=== PATIENT | male | born 1960 | race Caucasian/White ===

== ENCOUNTER → 2019-05-02 | Outpatient (CLI) | payer BC ==
--- NOTE | 2019-05-02 21:51 | CT ---
EXAMINATION TYPE: CT sinus wo con DATE OF EXAM: 05/02/2019 COMPARISON: Facial bone CT April 15, 2011. HISTORY: chronic sinusitis per order. Facial pain for [address] DLP: 468 mGycm. Automated Exposure Control for Dose Reduction was Utilized. TECHNIQUE: CT scan of the sinuses is performed without contrast, axial images are obtained, coronal r eformatted images are also reviewed. FINDINGS: Mild to moderate mucosal thickening involving the bilateral maxillary sinuses remains prese nt more prominent superior aspect near the antrum where there is suspected small mucous retention cys ts or polyps particularly on the left side. There is complete opacification of the ethmoid sinuses b ilaterally. There is near complete opacification of the left frontal sinus. The right frontal sinus s hows mild to moderate inferior mucosal thickening. Mild mucosal thickening bilateral sphenoid sinuses with patchy opacity anteriorly in the right sphenoid sinus is noted. The ostiomeatal complex is bloc ked bilaterally on the coronal images. Nasal septum remains deviated to right of midline anterior asp ect. Visualized portion of mastoid air cells show no abnormal opacification. The globes are intact bilate rally. Visualized portion of brain parenchyma is unremarkable. IMPRESSION: Acute on chronic paranasal sinus disease as detailed above.
== END | disposition home or self-care (01) ==
LOC: RADCTMAIN 16:38
PROVIDERS: ATTEND Otolaryngology
DX: J32.4 Chronic pansinusitis (principal)
CPT/HCPCS: 70486

== ENCOUNTER → 2022-03-17 | Outpatient (CLI) | payer BC ==
--- NOTE | 2022-03-17 08:53 | US ---
EXAMINATION TYPE: US liver DATE OF EXAM: 03/17/2022 COMPARISON: NONE CLINICAL HISTORY: 62-year-old male [id number] Elevated liver function test. TECHNIQUE: Multiple sonographic images of the right upper quadrant are obtained. FINDINGS: EXAM MEASUREMENTS: Liver Length: 12.9 cm Gallbladder Wall: 0.3 cm CBD: 0.3 cm Right Kidney: 9.7 x 5.7 x 5.5 cm INFANTRYMAN NOTES: Extensive overlying bowel gas, somewhat limiting exam Pancreas: Obscured by bowel gas Liver: Increased attenuation, focal fatty sparing adjacent to gallbladder Gallbladder: wnl Evidence for sonographic Wynn's sign: No CBD: wnl Right Kidney: wnl IMPRESSION: 1. Moderate hepatic steatosis. Correlate with LFTs, lipid profile, and patient risk factors. 2. No gallstones or biliary ductal dilatation.
== END | disposition home or self-care (01) ==
LOC: RADUSWWP 07:04
PROVIDERS: ATTEND Internal Medicine
DX: K76.0 Fatty (change of) liver, not elsewhere classified (principal)
CPT/HCPCS: 76705